=== PATIENT | female | born 1990 | race American Indian/Alaskan Native ===

== ENCOUNTER 2019-02-28 17:26 | Emergency (ER) | payer SELFPAY ==
[2019-02-28 17:35] VITALS: BP 101/64
[2019-02-28 17:53] LABS: HCG Qualitative,Urine Negative (Negative)
[2019-02-28 17:56] LABS: Bilirubin,Urine NEG (Negative); Blood,Urine MOD (Negative); Color,Urine Yellow (Yellow); Mucus,Urine FEW /HPF; Protein,Urine <15 mg/dL mg/dL (Negative); Urobilinogen,Urine < 2.0 mg/dL (<2.0)
--- NOTE | 2019-03-11 09:03 | Emergency Department Report ---
Blank Doc - Documentation Documentation: Patient left without being seen
== END 2019-02-28 19:25 | disposition left against medical advice (07) ==
LOC: ED 17:26
DX: R10.9 Unspecified abdominal pain (principal); Z53.21 Procedure and treatment not carried out due to patient leaving prior to being seen by health care provider
CPT/HCPCS: 81001; 81025